=== PATIENT | male | born 1955 | race Caucasian/White ===

== ENCOUNTER 2016-07-18 19:28 | Inpatient (IN) | payer MEDICARE, OTHER ==
[2016-07-18] MEDS ORDERED: SODIUM CHLORIDE 0.9% 10 ML FLUSH FLUSH PRN (19:38)
[2016-07-18] MEDS ORDERED: METHYLPREDNISOLONE 125 MG/2 ML VIAL IV ONE (19:39)
[2016-07-18] MEDS ORDERED: Albuterol/Ipratropium Neb 3 ML NEB NEB ONE (19:39)
[2016-07-18 20:04] LABS: AUTOMATED EOSINOPHIL 1.5 % (0-5); AUTOMATED LYMPH 20.4 % (17-44); AUTOMATED MONOCYTE 14.7 % (3-10); AUTOMATED NEUTROPHIL 62.4 % (45-76); MPV 9.8 fL (7.4-10.4)
[2016-07-18 20:13] LABS: ALLEN'S TEST PASS; TCO2 28.7 MMOL/L (23-27)
[2016-07-18 20:14] LABS: ABG Draw Site Right Radial; ABG Draw Tech BKL
[2016-07-18 20:15] LABS: BLOOD UREA NITROGEN 13 MG/DL (9-20); CALCIUM 9.1 MG/DL (8.4-10.2); CALCULATED OSMOLALITY 266 MOs/Kg (270-290); CHLORIDE 96 mEq/L (98-107); GLUCOSE 104 MG/DL (70-99); PARTIAL THROMB. TIME 26.8 SEC (22-35); PT-INR 1.2; SODIUM LEVEL 138 mEq/L (137-146); TOTAL PROTEIN 8.7 G/DL (6.3-8.2)
--- NOTE | 2016-07-18 20:34 | EDPRACDOC ---
- General Information Chief Complaint: Dyspnea/Resp distress Stated Complaint: SHOB/COUGH/CARMELA/FEVER Time Seen by Provider: 07/18/16 19:38 Information Source: Patient, Family Mode Of Arrival: Car Home Medications: Home Medications Albuterol/Ipratropium Neb [Duoneb] 3 ml NEB Q4-6H PRN 02/23/14 Aspirin (OrangeEnteric Coated) [Ecotrin] 325 mg PO DAILY 02/23/14 Fenofibrate,Micronized [Fenofibrate] 200 mg PO DAILY 02/23/14 Lisinopril/Hydrochlorothiazide [Lisinopril-Hctz 20-12.5 mg Tab] 1 tab PO BID 01/29 Metoprolol Tartrate [Lopressor] 100 mg PO BID 02/23/14 Atorvastatin Calcium [Lipitor] 80 mg PO DAILY 08/23/14 Nebulizer [Erapid Nebulizer] 1 item INH DAILY 08/23/14 Budesonide [Pulmicort] 0.5 mg NEB TID 07/18/16 Allergies/Adverse Reactions: Allergies Allergy/AdvReac Type Severity Reaction Status Date / Time No Known Allergies Allergy Verified 11/03/15 23:34 - History of Present Illness Onset: TODAY HPI: PT PRESENTS TODAY WITH SHOB THAT BEGAN TODAY. PT STATES PRODUCTIVE COUGH, CAMERON. COPD AND STILL SMOKES 1/2 PACK/DAY. DENIES CP, ABD PAIN, N/V/D. USING INHALER W/OUT RELIEF. PT CURRENTLY TO TRIAGE WITH TACHYPNEA, 1-2 WORD SENTENCES AND SPO2 85%. Shortness of Breath: Severe Relevant History: Reports: COPD Cough: Reports: Productive, Green Rhinorrhea: Reports: None Ear Symptoms: Reports: None SOB Worsens with: Reports: Exertion, Coughing, CAMERON SOB Improves with: Reports: Rest Associated Signs and symptoms: Reports: Cough, Fever (SUBJECTIVE) ED Past Medical History - History Reviewed Yes Nurses notes reviewed and agree except as marked - Patient Medical History Neurological History: Denies: Cerebrovascular Accident, Seizures, Migraine Cardiac History: Reports: Hypertension, Hypercholesterolemia Respiratory History: Reports: Asthma, COPD (Uses nebs. No O2 at home.) GI/ History: Reports: Gastroesophageal Reflux Musculoskeletal History: Reports: Arthritis Psychological History: Denies: Depression, Anxiety, Bipolar Disorder, Substance Use Disorder Systemic History: Denies: Cancer, Diabetes, Hypothyroidism Surgical History: Reports: Hernia Surgery, Other (SPLENECTOMY.) - Family Medical History Reports: Hypertension (Brother), Stroke (Mother). Denies: Diabetes, Cancer, Cardiac Disorders - Social Medical History Smoking Status: Heavy tobacco smoker (5 or more cigarettes/day or daily pipe/ cigar) Social History: Denies: Substance Use Disorder EDM Review of Systems - Review of Systems ROS Negative Except as Marked: Yes All systems reviewed and were negative except as marked Constitutional: Fever Ears: No Symptoms Reported Throat: No Symptoms Reported Nose: No Symptoms Reported Respiratory: Cough, Shortness of Breath, Wheezing, Dyspnea Cardiovascular: No Symptoms Reported Gastrointestinal: No Symptoms Reported Neurological: No Symptoms Reported Musculoskeletal: No Symptoms Reported Integumentary: No Symptoms Reported - Physical Exam Constitutional: Alert, Distress Oriented to: Time, Person, Place Last recorded Vital Signs: Last Vital Signs Temp 98.1 F 07/18/16 19:44 Pulse 118 07/18/16 20:14 Resp 26 H 07/18/16 20:14 BP 110/72 07/18/16 20:14 Pulse Ox 92 07/18/16 20:14 Oxygen Pulse Oxygen Saturation 92 O2 Device Nasal Cannula Oxygen Flow Rate 3 Fraction of Inspired Oxygen ( FIO2) - HEENT Head: Normal Eye Exam: Normal Neck: Normal, Denies Pain, Midline - Respiratory/Cardiovascular Respiratory: Diminished, Tachypnea, Wheezes Cardiovascular: Tachycardia - GI Palpation: Normal Tenderness: Non tender - Musculoskeletal Back: Normal Extremities: Normal - Integumentary Skin: Normal Lymphatics: Normal - Neurologic Cerebellar: Normal Mood Description: Normal Thought: Coherent Perception: Normal ED SOB MDM - Results Result Diagrams: 07/18/16 19:50 07/18/16 19:50 Results: WBC 16.1 xk/uL (3.8-10.8) H 07/18/16 19:50 RBC 5.19 xM/uL (4.70-6.10) 07/18/16 19:50 Hgb 16.3 g/dL (14.0-18.0) 07/18/16 19:50 Hct 48.7 % (42-52) 07/18/16 19:50 MCV 94 fL (80-94) 07/18/16 19:50 MCH 31.4 pg (27-32) 07/18/16 19:50 MCHC 33.4 g/dl (33-36) 07/18/16 19:50 RDW 15.4 % (11.5-14.5) H 07/18/16 19:50 Plt Count 234 xk/uL (130-400) 07/18/16 19:50 MPV 9.8 fL (7.4-10.4) 07/18/16 19:50 Neut % (Auto) 62.4 % (45-76) 07/18/16 19:50 Lymph % (Auto) 20.4 % (17-44) 07/18/16 19:50 Gray % (Auto) 14.7 % (3-10) H 07/18/16 19:50 Eos % (Auto) 1.5 % (0-5) 07/18/16 19:50 Baso % (Auto) 1.0 % (0-2) 07/18/16 19:50 Absolute Neuts (auto) 9.98 xk/uL (1.7-8.2) H 07/18/16 19:50 Absolute Lymphs (auto) 3.22 xk/uL (0.65-4.75) 07/18/16 19:50 PT 12.0 SEC (9.2-11.2) H 07/18/16 19:50 INR 1.2 07/18/16 19:50 APTT 26.8 SEC (22-35) 07/18/16 19:50 Puncture Site Right radial 07/18/16 20:05 pH 7.480 pH UNITS (7.35-7.45) H 07/18/16 20:05 pCO2 37.0 mmHg (35-45) 07/18/16 20:05 pO2 62.0 mmHg (80-100) L 07/18/16 20:05 HCO3 27.6 MMOL/L (22-26) H 07/18/16 20:05 Total CO2 28.7 MMOL/L (23-27) H 07/18/16 20:05 Base Excess 4.0 (+/- 2) H 07/18/16 20:05 FiO2 % 3 lpm 07/18/16 20:05 Specimen Drawn By Bkl 07/18/16 20:05 Sodium 138 mEq/L (137-146) 07/18/16 19:50 Potassium 3.7 mEq/L (3.5-5.1) 07/18/16 19:50 Chloride 96 mEq/L (98-107) L 07/18/16 19:50 Carbon Dioxide 29 mMOL/L (22-33) 07/18/16 19:50 Anion Gap 17 mEq/L (8-16) H 07/18/16 19:50 BUN 13 MG/DL (9-20) 07/18/16 19:50 Creatinine 1.00 MG/DL (0.66-1.25) 07/18/16 19:50 Estimated GFR (MDRD) > 60 mL/min (>=60) 07/18/16 19:50 Glucose 104 MG/DL (70-99) H 07/18/16 19:50 Calculated Osmolality 266 MOs/Kg (270-290) L 07/18/16 19:50 Lactic Acid 1.1 mEq/L (0.7-2.1) 07/18/16 19:50 Calcium 9.1 MG/DL (8.4-10.2) 07/18/16 19:50 Total Bilirubin 2.4 MG/DL (0.2-1.3) H 07/18/16 19:50 AST 38 IU/L (17-59) 07/18/16 19:50 ALT 37 IU/L (21-72) 07/18/16 19:50 Alkaline Phosphatase 124 IU/L (38-126) 07/18/16 19:50 Ijs-C-Bjonvnlpuvg Pept 336 pg/mL (0-900) 07/18/16 19:50 Total Protein 8.7 G/DL (6.3-8.2) H 07/18/16 19:50 Albumin 4.1 G/DL (3.5-5.0) 07/18/16 19:50 Lab Results 07/18/16 07/18/16 07/18/16 20:05 19:50 19:50 WBC RBC Hgb Hct MCV MCH MCHC RDW Plt Count MPV Neut % (Auto) Lymph % (Auto) [place] % (Auto) Eos % (Auto) Baso % (Auto) Absolute Neuts (auto) Absolute Lymphs (auto) PT INR APTT Puncture Site Right radial pH 7.480 H pCO2 37.0 pO2 62.0 L HCO3 27.6 H Total CO2 28.7 H Base Excess 4.0 H FiO2 % 3 lpm Specimen Drawn By Bkl Sodium Potassium Chloride Carbon Dioxide Anion Gap BUN Creatinine Estimated GFR (MDRD) Glucose Calculated Osmolality Lactic Acid 1.1 Calcium Total Bilirubin AST ALT Alkaline Phosphatase Sdi-Y-Aanqoiubkeb Pept 336 Total Protein Albumin 07/18/16 07/18/16 07/18/16 19:50 19:50 19:50 WBC 16.1 H RBC 5.19 Hgb 16.3 Hct 48.7 MCV 94 MCH 31.4 MCHC 33.4 RDW 15.4 H Plt Count 234 MPV 9.8 Neut % (Auto) 62.4 Lymph % (Auto) 20.4 Gray % (Auto) 14.7 H Eos % (Auto) 1.5 Baso % (Auto) 1.0 Absolute Neuts (auto) 9.98 H Absolute Lymphs (auto) 3.22 PT 12.0 H INR 1.2 APTT 26.8 Puncture Site pH pCO2 pO2 HCO3 Total CO2 Base Excess FiO2 % Specimen Drawn By Sodium 138 Potassium 3.7 Chloride 96 L Carbon Dioxide 29 Anion Gap 17 H BUN 13 Creatinine 1.00 Estimated GFR (MDRD) > 60 Glucose 104 H Calculated Osmolality 266 L Lactic Acid Calcium 9.1 Total Bilirubin 2.4 H AST 38 ALT 37 Alkaline Phosphatase 124 Vzj-[id number]-Cflgdlfzcla Pept Total Protein 8.7 H Albumin 4.1 - EKG EKG #1 EKG Time: 19:42 -: Yes EKG interpreted by me Rate: bpm: 114 [place]: Normal Rhythm: ST Block: None Hypertrophy: None ST: Normal - Departure Disposition: Admit IP To This Hospital Condition: Stable Final Diagnosis: Pneumonia, Acute respiratory failure with hypoxia, COPD with exacerbation Referrals: Reji Dinero MD [Primary Care Provider] - One Week Prescriptions: No Action Metoprolol Tartrate [Lopressor] 100 mg PO BID Lisinopril/Hydrochlorothiazide [Lisinopril-Hctz 20-12.5 mg Tab] 1 tab PO BID Fenofibrate,Micronized [Fenofibrate] 200 mg PO DAILY Aspirin (OrangeEnteric Coated) [Ecotrin] 325 mg PO DAILY Albuterol/Ipratropium Neb [Duoneb] 3 ml NEB Q4-6H PRN PRN Reason: Shortness Of Breath Nebulizer [Erapid Nebulizer] 1 item INH DAILY Atorvastatin Calcium [Lipitor] 80 mg PO DAILY Budesonide [Pulmicort] 0.5 mg NEB TID Decision to Admit Time: 22:19 Decision to admit date: 07/18/16 Decision to admit: from ED
--- NOTE | 2016-07-18 21:03 | DIRPT ---
CLINICAL DATA: Shortness of breath beginning today. Productive cough. History of COPD. Denies chest pain and abdominal pain. EXAM: PORTABLE CHEST 1 VIEW COMPARISON: 11/03/2015 FINDINGS: There are irregular interstitial opacities along the bronchovascular structures to both lung bases. There is a more subtle area of similar opacity in the right mid lung. No evidence of pulmonary edema. No pleural effusion or pneumothorax. Heart, mediastinum and nile are unremarkable. IMPRESSION: 1. Irregular interstitial opacities noted in both lung bases along the bronchovascular structures. Findings support bronchitis or possibly bronchopneumonia. No evidence of pulmonary edema. Electronically Signed By: Jaren Arauz M.D. On: 07/18/2016 21:01
[2016-07-18] MEDS ORDERED: NS 1,000 ML IV ONE ×2 (22:18→23:33)
[2016-07-18] MEDS ORDERED: CEFTRIAXONE 1 GM in D5W 100 ML IV ONE (22:19)
[2016-07-18] MEDS ORDERED: AZITHROMYCIN 500 MG in D5W 250 ML IV ONE (22:19)
--- NOTE | 2016-07-18 22:35 | HISTPHYS ---
- Chief Complaint shortness of breath - History of Present Illness PRIMARY CARE PROVIDER: Dr. Dinero HPI: The patient is a 61 yo man with COPD who does not wear oxygen at home who presents with acute shortness of breath. It started this morning and has been getting worse, so he presented to the emergency department. He has had fever and chills today. Onset: this morning. Duration: Now constant. Character: Can't get a good breath. Even short of breath with sitting. Alleviated by: Nothing. Exacerbated by: Walking. Associated Symptoms: Fever, chills, and diaphoresis. Cough productive of white sputum. Wheezing. No chest pain or palpitations. Treatments: none at home except usual medications. - Medical History Cardiac History: Reports: Hypertension, Hypercholesterolemia (and history of pericarditis) Respiratory History: Reports: COPD (Uses nebs. No O2 at home.) GI/ History: Reports: Gastroesophageal Reflux Musculoskeletal History: Reports: Arthritis, Rheumatoid Arthritis (Rheumatoid arthritis, had been on methotrexate in past) OTHER HISTORY ECHOCARDIOGRAM 12/24/2007: EF 75% Impaired relaxation with possible diastolic dysfunction. Medium-sized pericardial effusion without signs of hemodynamic compromise. 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.) - Medictions/Allergies Allergies No Known Allergies Allergy (Verified 11/03/15 23:34) Current Medication List: Reviewed Home Medications Albuterol/Ipratropium Neb [Duoneb] 3 ml NEB Q4-6H PRN 02/23/14 Aspirin (OrangeEnteric Coated) [Ecotrin] 325 mg PO DAILY 02/23/14 Fenofibrate,Micronized [Fenofibrate] 200 mg PO DAILY 02/23/14 Lisinopril/Hydrochlorothiazide [Lisinopril-Hctz 20-12.5 mg Tab] 1 tab PO BID 01/29 Metoprolol Tartrate [Lopressor] 100 mg PO BID 02/23/14 Atorvastatin Calcium [Lipitor] 80 mg PO DAILY 08/23/14 Nebulizer [Erapid Nebulizer] 1 item INH DAILY 08/23/14 Budesonide [Pulmicort] 0.5 mg NEB TID 07/18/16 - Family History Reports: Hypertension (Brother), Stroke (Mother), Other (Mother: rheumatoid arthritis. No other family history known.) - Social History Smoking Status: Heavy tobacco smoker (5 or more cigarettes/day or daily pipe/ cigar) (Smokes 1 ppd. Started 13 yo. Approx 48 pack-year history.) Social History: Denies: Alcohol Use, Substance Use Disorder - Review of Systems GENERAL: Fever, chills, and diaphoresis. Positive for fatigue/malaise. HEENT: No ear pain or discharge. No nasal discharge or bleeding. No throat pain or swelling. No eye pain or eye redness. RESPIRATORY: Cough, wheezing, and shortness of breath. CARDIOVASCULAR: No chest pain or palpitations. GI: Chronic diarrhea. No abdominal pain, nausea, vomiting, constipation, or bloody stool. NEUROLOGICAL: No headache or focal weakness. INTEGUMENT: no rashes, itching, or lesions. LYMPHATIC SYSTEM: no lymph node swelling or pain. MUSCULOSKELETAL: no pain or joint swelling. GENITOURINARY: No dysuria or hematuria. ENDOCRINE: No polyuria or polydipsia. HEME: No chronic anemia, bleeding, or easy bruising. - Physical Exam Vital Signs: Initial Vitals Temperature 98.1 F 07/18/16 19:44 Pulse Rate 117 07/18/16 19:44 Respiratory Rate 28 H 07/18/16 19:44 Blood Pressure 118/73 07/18/16 19:44 Pulse Oxygen Saturation 89 L 07/18/16 19:44 Vital Signs - 24 hr 07/18/16 07/18/16 07/18/16 19:44 20:14 21:09 Temperature 98.1 F Pulse Rate 117 118 117 Respiratory 28 H 26 H 20 Rate Blood Pressure 118/73 110/72 116/75 Pulse Oxygen 89 L 92 87 L Saturation Weight: 90.7 kg Height: 5 feet 2 inches BMI: 36.6 - Other Exam Other Exam Findings: GENERAL: Ill-appearing, well nourished, in acute distress. Sitting on edge of bed. HEENT: Normocephalic, atraumatic; pupils equal and round. Nares patent, without discharge or bleeding. No oropharyngeal lesions or erythema. Mucous membranes are dry. NECK: is supple, no masses, trachea midline. RESPIRATORY: Exam performed while patient wearing 3L NC O2. Clear to auscultation bilaterally. Chest wall movements are symmetric. Tachypnea to 28. Use of accessory muscles to breathe. Sitting straight up on edge of bed. Pursed lip breathing. Prolonged expiration. Bilateral wheezing. Rhonchi on right. No rales. CARDIOVASCULAR: Normal S1, S2. No murmurs, rubs, or gallops. PMI non-displaced. Carotids: no carotid bruits. Mild tachycardia. No JVD. DP pulses 2+ bilaterally. GI: soft, nontender, non-distended, normal active bowel sounds. No hepatosplenomegaly. INTEGUMENT: Clean, dry, and intact. No rashes. No lesions. MUSCULOSKELETAL: Moving all extremities. No cyanosis. No clubbing. Edema: none bilaterally. NEUROLOGICAL: Cranial nerves 2-12 grossly intact. Motor 4/5 throughout. Reflexes : 2+ bilaterally. Babinski: toes downgoing bilaterally. Intact Finger to nose. Sensory grossly intact to light touch. Intact rapid alternating movements bilaterally. No pronator drift. PSYCHIATRIC: Fully oriented. Normal and appropriate affect. LYMPHATIC: No cervical lymphadenopathy. No supraclavicular lymphadenopathy. - Lab Results Laboratory Results - last 24 hr 07/18/16 07/18/16 07/18/16 19:50 19:50 19:50 WBC 16.1 H RBC 5.19 Hgb 16.3 Hct 48.7 MCV 94 MCH 31.4 MCHC 33.4 RDW 15.4 H Plt Count 234 MPV 9.8 Neut % (Auto) 62.4 Lymph % (Auto) 20.4 [place] % (Auto) 14.7 H Eos % (Auto) 1.5 Baso % (Auto) 1.0 Absolute Neuts (auto) 9.98 H Absolute Lymphs (auto) 3.22 PT 12.0 H INR 1.2 APTT 26.8 Puncture Site pH pCO2 pO2 HCO3 Total CO2 Base Excess FiO2 % Specimen Drawn By Sodium 138 Potassium 3.7 Chloride 96 L Carbon Dioxide 29 Anion Gap 17 H BUN 13 Creatinine 1.00 Estimated GFR (MDRD) > 60 Glucose 104 H Calculated Osmolality 266 L Lactic Acid Calcium 9.1 Total Bilirubin 2.4 H AST 38 ALT 37 Alkaline Phosphatase 124 Troponin I < 0.01 Yrv-Y-Qeonnanjtip Pept Total Protein 8.7 H Albumin 4.1 07/18/16 07/18/16 07/18/16 19:50 19:50 20:05 WBC RBC Hgb Hct MCV MCH MCHC RDW Plt Count MPV Neut % (Auto) Lymph % (Auto) [place] % (Auto) Eos % (Auto) Baso % (Auto) Absolute Neuts (auto) Absolute Lymphs (auto) PT INR APTT Puncture Site Right radial pH 7.480 H pCO2 37.0 pO2 62.0 L HCO3 27.6 H Total CO2 28.7 H Base Excess 4.0 H FiO2 % 3 lpm Specimen Drawn By Bkl Sodium Potassium Chloride Carbon Dioxide Anion Gap BUN Creatinine Estimated GFR (MDRD) Glucose Calculated Osmolality Lactic Acid 1.1 Calcium Total Bilirubin AST ALT Alkaline Phosphatase Troponin I Shg-U-Mslnbcmefnt Pept 336 Total Protein Albumin - Diagnostic Findings EK bpm. Sinus tachycardia. Reviewed EKG personally. Chest x-ray, viewed personally: CLINICAL DATA: Shortness of breath beginning today. Productive cough. History of COPD. Denies chest pain and abdominal pain. EXAM: PORTABLE CHEST 1 VIEW COMPARISON: 11/03/2015 FINDINGS: There are irregular interstitial opacities along the bronchovascular structures to both lung bases. There is a more subtle area of similar opacity in the right mid lung. No evidence of pulmonary edema. No pleural effusion or pneumothorax. Heart, mediastinum and nile are unremarkable. IMPRESSION: 1. Irregular interstitial opacities noted in both lung bases along the bronchovascular structures. Findings support bronchitis or possibly bronchopneumonia. No evidence of pulmonary edema. - Assessment (1) Acute respiratory failure with hypoxia J96.01 - ACUTE RESPIRATORY FAILURE WITH HYPOXIA Acute Present on Admission: Yes Patient has dyspnea and is not improving. Patient's PO2 is low even while on 3L NC. Patient's peripheral O2 sat worsened to 87%. Plan: Treatment with O2 by NC has not been effective; he is still tachypneic and sitting straight up in bed trying to breathe. Place patient on oxygen by Venti Mask 40% and increase as needed. Monitor oxygen saturation levels and keep O2 sats greater than 92%. Will check a D-dimer. If positive will order CTA Chest. (2) Sepsis A41.9 - SEPSIS, UNSPECIFIED ORGANISM Acute Present on Admission: Yes Present on admission. Criteria: Pulse 114. Respiratory rate 28. Elevated WBCs. Source: Likely due to bronchopneumonia. Plan: Sepsis order set. IV antibiotics. IV fluids to provide volume. Monitor for signs of volume depletion, monitor blood pressure carefully. If still hypotensive with IV fluids consider pressors. Close monitoring. Telemetry. IVF: initial IVF 30 mL/kg x 1, then 250 mL/hr x 1 L, then maintenance IVF. (3) COPD with exacerbation J44.1 - CHRONIC OBSTRUCTIVE PULMONARY DISEASE W (ACUTE) EXACERBATION Acute Present on Admission: Yes COPD exacerbation, severe. Plan: Nebs of Duoneb q 6 hours scheduled and albuterol q 2 hours prn. Sputum culture ordered. IV ceftriaxone and IV azithromycin. IV methylprednisolone. Continuous oxygen support. Keep sats below 95% due to COPD. (4) Bronchopneumonia J18.0 - BRONCHOPNEUMONIA, UNSPECIFIED ORGANISM Acute Present on Admission: Yes Rhonchi on exam. Patient has fever and chills at home. Plan: Cultures ordered. Give IV ceftriaxone and IV azithromycin. Continuous oxygen support. (5) Tobacco abuse Z72.0 - TOBACCO USE Acute Present on Admission: Yes Counseled to quit. 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 - Plan In summary, this patient is acutely and critically ill. The patient requires treatment of vital organ failure and measures to prevent further life- threatening deterioration of condition. I have spent 60 min in the critical care of this patient. Case Care Discussed with: Patient, Nursing Staff Total Time: 60 min Critical Care: Yes Code: 291 - Focused CV Perfusion Exam Date exam occurred: 07/18/16 Time of Exam: 23:00 Vital Signs: Last Vital Signs See Vitals section Respiratory: Respiratory distress, Accessory muscle use, Rhonchi, Wheezing Cardiovascular/Chest: Normal (Normal S1 and S2), Tachycardia Capillary Refill: Immediate Peripheral pulses: Full: Radial (R), Radial (L), Dorsalis pedis (R), Dorsalis pedis (L), Posterior tibialis (R), Posterior tibialis (L) Skin Color: negative: Erythema, Cyanotic Skin Turgor: <3 Seconds
[2016-07-18] MEDS ORDERED: PROMETHAZINE 25 MG/ML VIAL IV PRN (23:33)
[2016-07-18] MEDS ORDERED: TEMAZEPAM 15 MG CAP PO PRN (23:33)
[2016-07-18] MEDS ORDERED: GUAIFEN 100 MG-DEXTROMETH 10 MG PER 5 ML PO PRN (23:33)
[2016-07-18] MEDS ORDERED: SIMETHICONE 80 MG TAB PO PRN (23:33)
[2016-07-18] MEDS ORDERED: BISACODYL 5 MG TAB PO PRN (23:33)
[2016-07-18] MEDS ORDERED: BENZONATATE 100 MG PERLES PO PRN (23:33)
[2016-07-18] MEDS ORDERED: SENNA CONCENTRATE TAB PO PRN (23:33)
[2016-07-18] MEDS ORDERED: ONDANSETRON HCL 4 MG/2 ML VIAL IV PRN (23:33)
[2016-07-18] MEDS ORDERED: Pharmacy Order Set Alert SCH (23:45)
[2016-07-19] MEDS ORDERED: ALBUTEROL 0.083% 3 ML NEB NEB PRN (00:04)
[2016-07-19] MEDS ORDERED: POTASSIUM CHLORIDE 20 MEQ TAB PO ONE (00:08)
[2016-07-19] MEDS: ENOXAPARIN 40 MG/0.4 ML PFS SQ SCH ×2 (00:30→20:24)
[2016-07-19] MEDS: METOPROLOL TARTRATE 100 MG TAB PO SCH ×3 (00:43→20:22)
[2016-07-19] MEDS ORDERED: Vaccine Screening Complete SCH (01:00)
[2016-07-19] MEDS ORDERED: NS 1,000 ML IV ONE (01:35)
[2016-07-19] MEDS ORDERED: Pharmacy Review for Metformin - IV Contrast Given SCH (02:00)
[2016-07-19 02:11] LABS: MPV 9.6 fL (7.4-10.4)
[2016-07-19 02:15] LABS: BLOOD UREA NITROGEN 13 MG/DL (9-20); CALC CORRECTED 9.2 MG/DL (8.4-10.2); CALCIUM 8.7 MG/DL (8.4-10.2); CALCULATED OSMOLALITY 264 MOs/Kg (270-290); CHLORIDE 96 mEq/L (98-107); GLUCOSE 199 mg/dL (70-99); SODIUM LEVEL 134 mEq/L (137-146); TOTAL PROTEIN 7.5 G/DL (6.3-8.2)
[2016-07-19] MEDS: Albuterol/Ipratropium Neb 3 ML NEB NEB SCH ×5 (02:27→19:34)
[2016-07-19] MEDS ORDERED: AZITHROMYCIN 500 MG in D5W 250 ML IV SCH (02:35)
[2016-07-19 03:05] LABS: SEG NEUTROPHIL 88 % (45-76)
--- NOTE | 2016-07-19 03:22 | DIRPT ---
CLINICAL DATA: Elevated D-dimer. Respiratory failure and chills. Sepsis. EXAM: CT ANGIOGRAPHY CHEST WITH CONTRAST TECHNIQUE: Multidetector CT imaging of the chest was performed using the standard protocol during bolus administration of intravenous contrast. Multiplanar CT image reconstructions and MIPs were obtained to evaluate the vascular anatomy. CONTRAST: 80 cc Isovue 370 intravenous COMPARISON: 08/23/2014 FINDINGS: THORACIC INLET/BODY WALL: No acute abnormality. MEDIASTINUM: Normal heart size. No aortic aneurysm or dissection. Extensive atherosclerotic calcification, including the coronary arteries. No pericardial effusion. CTA of the pulmonary arteries is limited by respiratory motion, especially at the bases. Motion primarily affects subsegmental vessels. No evidence of pulmonary embolism. No adenopathy LUNG WINDOWS: Hyperinflation with severe airway thickening, especially in the lower lobes where there is multi segment airway opacification. Transient collapse of airways consistent with bronchomalacia. There is no edema, consolidation, effusion, or pneumothorax. UPPER ABDOMEN: Splenectomy. OSSEOUS: No acute fracture. No suspicious lytic or blastic lesions. Review of the MIP images confirms the above findings. IMPRESSION: 1. No evidence of pulmonary embolism. Sensitivity is limited by extensive respiratory motion, primarily affecting subsegmental vessels. 2. Severe bronchitis with multi segment airway occlusion. Tracheobronchomalacia. Electronically Signed By: Gaston Mancuso M.D. On: 07/19/2016 03:20
[2016-07-19] MEDS: METHYLPREDNISOLONE 125 MG/2 ML VIAL IV SCH ×3 (03:42→20:22)
[2016-07-19] MEDS: NS 1,000 ML IV SCH ×4 (06:20→23:12)
[2016-07-19] MEDS: HYDROCHLOROTHIAZIDE 12.5 MG CAP PO SCH ×2 (07:30→20:22)
[2016-07-19] MEDS: Aspirin (Orange Enteric Coated) 325 mg tab PO SCH (07:30)
[2016-07-19] MEDS: FENOFIBRATE 145 MG TAB PO SCH (07:30)
[2016-07-19] MEDS: LISINOPRIL 20 MG TAB PO SCH ×2 (07:31→20:22)
[2016-07-19] MEDS: ATORVASTATIN 80 MG TAB PO SCH (07:31)
[2016-07-19] MEDS: BUDESONIDE 0.5 MG NEB NEB SCH ×3 (08:40→19:40)
[2016-07-19] MEDS ORDERED: LISINOPRIL PO SCH (09:00)
[2016-07-19] MEDS ORDERED: [UNRECOGNIZED DRUG - OTHER] PO SCH (09:00)
[2016-07-19] MEDS ORDERED: HYDROCHLOROTHIAZIDE PO SCH (09:00)
[2016-07-19] MEDS ORDERED: Non-Formulary Medication ITEM (Fenofibrate,Micronized [Fenofibrate] 200 MG) PO SCH (09:00)
--- NOTE | 2016-07-19 09:59 | GENMEDPROG ---
Chief Complaint: wearing venti-mask and sob @ 26/min Notes Reviewed: Yes: Events from last night noted and discussed with Clinical Staff Current Medication List: Reviewed Currently: Reports: Cough, Wheezing, CAMERON, SOB, Sputum DVT Prophylaxis: Yes - Physical Examination Vital Signs and I&O: Last Vital Signs Temp 97.6 F 07/19/16 07:36 Pulse 91 07/19/16 09:06 Resp 26 H 07/19/16 07:36 BP 122/80 07/19/16 07:36 Pulse Ox 98 07/19/16 08:40 Oxygen Pulse Oxygen Saturation 98 O2 Device Venturi Mask Oxygen Flow Rate 3 Fraction of Inspired Oxygen ( 40 FIO2) Intake & Output 07/16/16 07/17/16 07/18/16 07/19/16 23:59 23:59 23:59 23:59 Intake Total 305 1947 Output Total 2125 Balance 305 -178 Patient's weight 84.187 kg General: Oriented x3, Moderate distress, Obese, Weakness, Fatigue HEENT: Normal (Normocephalic, atraumatic;EOMI.Sclera white, Nares patent, without discharge or bleeding. No oropharyngeal lesions or erythema. Mucous membranes are dry.) Neck: Non-tender, Normal Trachea alignment, Normal inspection (No cervical lymphadenopathy. No supraclavicular lymphadenopathy.), No Masses palpable, Limited range of motion, Supple Lymphatics: Normal Respiratory: Diminished, Retractions, Tachypnea, Wheezes, Excursion (decreased) . negative: Rales, Rhonchi Cardiovascular: Regular rate and rhythm (No bradycardia or tachycardia), Normal S1, No Gallops,Rubs/Murmurs, Normal S2, Good Pedal Pulses (DP pulses 2+ bilaterally) GI: Normal bowel sounds (normal active sounds), Soft (non-distended), Non tender , No hepatospenomegaly, No masses, Obese Extremities/Musculoskeletal: Normal pulses (DP pulses 2+ bilaterally), Other ( RA ulnar deviation) Skin: Warm,Dry and Intact, No rashes, No significant lesion Neurological: Strength at 5/5 X4 ext (Motor 5/5 throughout.), Normal tone, Cranial nerves 3-12 NL ( 2-12 grossly intact.) Psych/Mental Status: Appropriate, Normal Affect Lab/DI/Studies Reviewed: 07/19/16 01:45 07/19/16 01:45 Laboratory Results - last 24 hr 07/18/16 07/18/16 07/18/16 19:50 19:50 19:50 WBC 16.1 H RBC 5.19 Hgb 16.3 Hct 48.7 MCV 94 MCH 31.4 MCHC 33.4 RDW 15.4 H Plt Count 234 MPV 9.8 Neut % (Auto) 62.4 Lymph % (Auto) 20.4 Duval % (Auto) 14.7 H Eos % (Auto) 1.5 Baso % (Auto) 1.0 Absolute Neuts (auto) 9.98 H Absolute Lymphs (auto) 3.22 Seg Neuts % (Manual) Band Neutrophils % Lymphocytes % (Manual) Monocytes % (Manual) Absolute Neutrophils Absolute Lymphocytes Platelet Estimate RBC Morphology PT 12.0 H INR 1.2 APTT 26.8 D-Dimer Quant (PE/DVT) Puncture Site pH pCO2 pO2 HCO3 Total CO2 Base Excess FiO2 % Specimen Drawn By Sodium 138 Potassium 3.7 Chloride 96 L Carbon Dioxide 29 Anion Gap 17 H BUN 13 Creatinine 1.00 Estimated GFR (MDRD) > 60 Glucose 104 H Calculated Osmolality 266 L Lactic Acid Calcium 9.1 Corrected Calcium Total Bilirubin 2.4 H AST 38 ALT 37 Alkaline Phosphatase 124 Troponin I < 0.01 Vgf-Y-Zopnwwjqxmf Pept Total Protein 8.7 H Albumin 4.1 07/18/16 07/18/16 07/18/16 19:50 19:50 20:05 WBC RBC Hgb Hct MCV MCH MCHC RDW Plt Count MPV Neut % (Auto) Lymph % (Auto) Duval % (Auto) Eos % (Auto) Baso % (Auto) Absolute Neuts (auto) Absolute Lymphs (auto) Seg Neuts % (Manual) Band Neutrophils % Lymphocytes % (Manual) Monocytes % (Manual) Absolute Neutrophils Absolute Lymphocytes Platelet Estimate RBC Morphology PT INR APTT D-Dimer Quant (PE/DVT) Puncture Site Right radial pH 7.480 H pCO2 37.0 pO2 62.0 L HCO3 27.6 H Total CO2 28.7 H Base Excess 4.0 H FiO2 % 3 lpm Specimen Drawn By Bkl Sodium Potassium Chloride Carbon Dioxide Anion Gap BUN Creatinine Estimated GFR (MDRD) Glucose Calculated Osmolality Lactic Acid 1.1 Calcium Corrected Calcium Total Bilirubin AST ALT Alkaline Phosphatase Troponin I Ilf-L-Ndlhxkiswka Pept 336 Total Protein Albumin 07/18/16 07/18/16 07/19/16 23:35 23:35 01:45 WBC RBC Hgb Hct MCV MCH MCHC RDW Plt Count MPV Neut % (Auto) Lymph % (Auto) Duval % (Auto) Eos % (Auto) Baso % (Auto) Absolute Neuts (auto) Absolute Lymphs (auto) Seg Neuts % (Manual) Band Neutrophils % Lymphocytes % (Manual) Monocytes % (Manual) Absolute Neutrophils Absolute Lymphocytes Platelet Estimate RBC Morphology PT INR APTT D-Dimer Quant (PE/DVT) 726 H Puncture Site pH pCO2 pO2 HCO3 Total CO2 Base Excess FiO2 % Specimen Drawn By Sodium Potassium Chloride Carbon Dioxide Anion Gap BUN Creatinine Estimated GFR (MDRD) Glucose Calculated Osmolality Lactic Acid Calcium Corrected Calcium Total Bilirubin AST ALT Alkaline Phosphatase Troponin I < 0.01 < 0.01 Swy-Q-Zxzcenplxqa Pept Total Protein Albumin 07/19/16 07/19/16 01:45 01:45 WBC 11.1 H RBC 4.65 L Hgb 14.6 D Hct 44.4 MCV 96 H MCH 31.4 MCHC 32.9 L RDW 15.7 H Plt Count 211 MPV 9.6 Neut % (Auto) Cancelled Lymph % (Auto) Cancelled Duval % (Auto) Cancelled Eos % (Auto) Cancelled Baso % (Auto) Cancelled Absolute Neuts (auto) Cancelled Absolute Lymphs (auto) Cancelled Seg Neuts % (Manual) 88 H Band Neutrophils % 0 Lymphocytes % (Manual) 6 L Monocytes % (Manual) 6 Absolute Neutrophils 9.77 H Absolute Lymphocytes 0.67 Platelet Estimate Norm RBC Morphology Norm PT INR APTT D-Dimer Quant (PE/DVT) Puncture Site pH pCO2 pO2 HCO3 Total CO2 Base Excess FiO2 % Specimen Drawn By Sodium 134 L Potassium 3.8 Chloride 96 L Carbon Dioxide 27 Anion Gap 15 BUN 13 Creatinine 0.90 Estimated GFR (MDRD) > 60 Glucose 199 H Calculated Osmolality 264 L Lactic Acid Calcium 8.7 Corrected Calcium 9.2 Total Bilirubin 1.7 H AST 26 D ALT 33 Alkaline Phosphatase 97 Troponin I Fnz-M-Wabdbucgmhh Pept Total Protein 7.5 Albumin 3.5 - Assessment (1) Acute respiratory failure with hypoxia Acute J96.01 - ACUTE RESPIRATORY FAILURE WITH HYPOXIA Comment/Plan: Patient has dyspnea and is not improving. Patient's PO2 is low even while on 3L NC. Patient's peripheral O2 sat worsened to 87%. Plan: Treatment with O2 by NC has not been effective; he is still tachypneic and sitting straight up in bed trying to breathe. Place patient on oxygen by Venti Mask 40% and increase as needed. Monitor oxygen saturation levels and keep O2 sats greater than 92%. Will check a D-dimer. If positive will order CTA Chest. (2) Bronchopneumonia Acute J18.0 - BRONCHOPNEUMONIA, UNSPECIFIED ORGANISM Comment/Plan: Rhonchi on exam. Patient has fever and chills at home. Plan: Cultures ordered. Give IV ceftriaxone and IV azithromycin. Continuous oxygen support. (3) COPD with exacerbation Acute J44.1 - CHRONIC OBSTRUCTIVE PULMONARY DISEASE W (ACUTE) EXACERBATION Comment/Plan: COPD exacerbation, severe. Plan: Nebs of Duoneb q 6 hours scheduled and albuterol q 2 hours prn. Sputum culture ordered. IV ceftriaxone and IV azithromycin. IV methylprednisolone. Continuous oxygen support. Keep sats below 95% due to COPD. (4) Tobacco abuse Chronic Z72.0 - TOBACCO USE Comment/Plan: Counseled to quit. (5) DMII (diabetes mellitus, type 2) Chronic E11.9 - TYPE 2 DIABETES MELLITUS WITHOUT COMPLICATIONS Qualifiers: Diabetes mellitus complication status: with kidney complications Diabetes mellitus complication detail: with microalbuminuria Comment/Plan: FSBS and SSI. Continue home meds. (6) Hypothyroidism Chronic E03.9 - HYPOTHYROIDISM, UNSPECIFIED Qualifiers: Hypothyroidism type: acquired Qualified Code(s): E03.9 - Hypothyroidism, unspecified Comment/Plan: Synthroid. Additional Notes: Due to the presence of and / or the risk of deterioration, my attendance to this patient required critical care time, including assessment/reassessment, documentation, ordering and interpreting ancillary studies, discussion with staff and consultants,patient and family, and excludes time spent on separately billable procedures. This individual is critically ill and in danger of dying. Case Care Discussed with: Patient, Nursing Staff, Resource Management Education/Counseling Given To: Patient Education/Counseling Given Regarding: Diagnosis, Treatment Total Time: cc time 38 min Critical Care: Yes Code: 291
[2016-07-19] MEDS: TUSSIONEX 5 ML ORAL SYRINGE PO SCH ×2 (10:26→21:36)
[2016-07-19] MEDS: PROBIOTIC BLEND TAB PO SCH ×2 (11:29→17:09)
[2016-07-19] MEDS: BENZONATATE 100 MG PERLES PO SCH ×2 (14:33→20:24)
[2016-07-19] MEDS: CEFTRIAXONE 1 GM in D5W 100 ML IV SCH (22:00)
[2016-07-19] MEDS: AZITHROMYCIN 500 MG in D5W 250 ML IV SCH (23:12)
[2016-07-20] MEDS: Albuterol/Ipratropium Neb 3 ML NEB NEB SCH ×4 (01:23→20:52)
[2016-07-20] MEDS: METHYLPREDNISOLONE 125 MG/2 ML VIAL IV SCH ×3 (04:26→20:00)
[2016-07-20] MEDS: BENZONATATE 100 MG PERLES PO SCH ×3 (04:26→20:03)
[2016-07-20] MEDS: METOPROLOL TARTRATE 100 MG TAB PO SCH ×2 (07:06→20:02)
[2016-07-20] MEDS: LISINOPRIL 20 MG TAB PO SCH ×2 (07:47→20:04)
[2016-07-20] MEDS: HYDROCHLOROTHIAZIDE 12.5 MG CAP PO SCH ×2 (07:47→20:03)
[2016-07-20] MEDS: ATORVASTATIN 80 MG TAB PO SCH (07:48)
[2016-07-20] MEDS: FENOFIBRATE 145 MG TAB PO SCH (07:48)
[2016-07-20] MEDS: PROBIOTIC BLEND TAB PO SCH ×2 (07:48→17:23)
[2016-07-20] MEDS: Aspirin (Orange Enteric Coated) 325 mg tab PO SCH (07:48)
[2016-07-20] MEDS: BUDESONIDE 0.5 MG NEB NEB SCH ×3 (08:39→20:54)
[2016-07-20] MEDS: TUSSIONEX 5 ML ORAL SYRINGE PO SCH ×2 (09:07→20:10)
--- NOTE | 2016-07-20 10:25 | GENMEDPROG ---
Chief Complaint: sob sl better coughing up creamy phlegm Notes Reviewed: Yes: Events from last night noted and discussed with Clinical Staff Current Medication List: Reviewed Currently: Reports: Cough, Wheezing, CAMERON, SOB, Sputum DVT Prophylaxis: Yes - Physical Examination Vital Signs and I&O: Last Vital Signs Temp 98.0 F 07/20/16 08:00 Pulse 57 L 07/20/16 09:07 Resp 20 07/20/16 08:00 BP 111/66 07/20/16 08:00 Pulse Ox 95 07/20/16 08:53 Oxygen Pulse Oxygen Saturation 95 O2 Device Nasal Cannula Oxygen Flow Rate 3 Fraction of Inspired Oxygen ( 35 FIO2) Intake & Output 07/17/16 07/18/16 07/19/16 07/20/16 23:59 23:59 23:59 23:59 Intake Total 305 4904 1689 Output Total 3375 1050 Balance 305 1529 639 Patient's weight 84.187 kg 85.366 kg General: Oriented x3, Moderate distress, Obese, Weakness, Fatigue HEENT: Normal (Normocephalic, atraumatic;EOMI.Sclera white, Nares patent, without discharge or bleeding. No oropharyngeal lesions or erythema. Mucous membranes are dry.) Neck: Non-tender, Normal Trachea alignment, Normal inspection (No cervical lymphadenopathy. No supraclavicular lymphadenopathy.), No Masses palpable, Limited range of motion, Supple Lymphatics: Normal Respiratory: Diminished, Rhonchi, Wheezes, Excursion (decreased). negative: Rales Cardiovascular: Regular rate and rhythm (No bradycardia or tachycardia), Normal S1, No Gallops,Rubs/Murmurs, Normal S2, Good Pedal Pulses (DP pulses 2+ bilaterally) GI: Normal bowel sounds (normal active sounds), Soft (non-distended), Non tender , No hepatospenomegaly, No masses, Obese Extremities/Musculoskeletal: Normal pulses (DP pulses 2+ bilaterally), Other ( RA ulnar deviation) Skin: Warm,Dry and Intact, No rashes, No significant lesion Neurological: Strength at 5/5 X4 ext (Motor 5/5 throughout.), Normal tone, Cranial nerves 3-12 NL ( 2-12 grossly intact.) Psych/Mental Status: Appropriate, Normal Affect Lab/DI/Studies Reviewed: 07/19/16 01:45 07/19/16 01:45 - Assessment (1) Acute respiratory failure with hypoxia Acute J96.01 - ACUTE RESPIRATORY FAILURE WITH HYPOXIA Comment/Plan: O2 sat has improve such that now requiring 3 L by nasal cannula. (2) Bronchopneumonia Acute J18.0 - BRONCHOPNEUMONIA, UNSPECIFIED ORGANISM Comment/Plan: Tolerating the IV ceftriaxone and IV azithromycin with probiotic. (3) COPD with exacerbation Acute J44.1 - CHRONIC OBSTRUCTIVE PULMONARY DISEASE W (ACUTE) EXACERBATION Comment/Plan: COPD exacerbation, severe. Nebs of Duoneb q 6 hours scheduled and albuterol q 2 hours prn. IV ceftriaxone and IV azithromycin. IV methylprednisolone. Continuous oxygen support. Keep sats below 95% due to COPD. (4) Tobacco abuse Chronic Z72.0 - TOBACCO USE Comment/Plan: Counseled to quit. Spent 10 min discussing cessation and agreed to take the Chantix to help him quit. (5) Hypothyroidism Chronic E03.9 - HYPOTHYROIDISM, UNSPECIFIED Qualifiers: Hypothyroidism type: acquired Qualified Code(s): E03.9 - Hypothyroidism, unspecified Comment/Plan: Synthroid. (6) DMII (diabetes mellitus, type 2) Chronic E11.9 - TYPE 2 DIABETES MELLITUS WITHOUT COMPLICATIONS Qualifiers: Diabetes mellitus complication status: with kidney complications Diabetes mellitus complication detail: with microalbuminuria Diabetes mellitus [facility] insulin use: without [facility] use Qualified Code(s): E11.29 - Type 2 diabetes mellitus with other diabetic kidney complication; R80.9 - Proteinuria, unspecified Comment/Plan: FSBS and SSI. Continue home meds. Case Care Discussed with: Patient, Nursing Staff Education/Counseling Given To: Patient Education/Counseling Given Regarding: Diagnosis, Treatment Total Time: 36 min plus 10 min discussion cessation smoking Critical Care: No Code: 39233 (12+) (407)
[2016-07-20] MEDS: NS 1,000 ML IV SCH (16:59)
[2016-07-20] MEDS: ENOXAPARIN 40 MG/0.4 ML PFS SQ SCH (17:23)
[2016-07-20] MEDS: CEFTRIAXONE 1 GM in D5W 100 ML IV SCH (23:18)
[2016-07-21] MEDS: AZITHROMYCIN 500 MG in D5W 250 ML IV SCH ×2 (00:14→23:33)
[2016-07-21] MEDS: Albuterol/Ipratropium Neb 3 ML NEB NEB SCH ×4 (02:07→20:23)
[2016-07-21] MEDS: NS 1,000 ML IV SCH (03:30)
[2016-07-21] MEDS: METHYLPREDNISOLONE 125 MG/2 ML VIAL IV SCH ×3 (04:45→21:35)
[2016-07-21] MEDS: BENZONATATE 100 MG PERLES PO SCH ×3 (04:46→21:36)
[2016-07-21] MEDS: PROBIOTIC BLEND TAB PO SCH ×2 (07:59→17:31)
[2016-07-21] MEDS: LISINOPRIL 20 MG TAB PO SCH ×2 (07:59→21:36)
[2016-07-21] MEDS: HYDROCHLOROTHIAZIDE 12.5 MG CAP PO SCH ×2 (07:59→21:36)
[2016-07-21] MEDS: ATORVASTATIN 80 MG TAB PO SCH (08:00)
[2016-07-21] MEDS: Aspirin (Orange Enteric Coated) 325 mg tab PO SCH (08:00)
[2016-07-21] MEDS: METOPROLOL TARTRATE 100 MG TAB PO SCH ×2 (08:00→21:36)
[2016-07-21] MEDS: FENOFIBRATE 145 MG TAB PO SCH (08:00)
[2016-07-21] MEDS: BUDESONIDE 0.5 MG NEB NEB SCH ×3 (08:50→20:26)
[2016-07-21] MEDS: TUSSIONEX 5 ML ORAL SYRINGE PO SCH ×2 (09:48→21:38)
--- NOTE | 2016-07-21 16:07 | GENMEDPROG ---
Chief Complaint: Discussed smoking cessation again today and patient thinks by using nicotine patch will be able to quit. He mentions cough productive of greenish phlegm and he is feel better, less short of breath. Notes Reviewed: Yes: Events from last night noted and discussed with Clinical Staff Current Medication List: Reviewed Currently: Reports: Cough, Wheezing, CAMERON, SOB, Sputum DVT Prophylaxis: Yes - Physical Examination Vital Signs and I&O: Last Vital Signs Temp 97.7 F 07/21/16 11:38 Pulse 65 07/21/16 12:56 Resp 18 07/21/16 11:38 BP 112/62 07/21/16 11:38 Pulse Ox 96 07/21/16 11:38 Oxygen Pulse Oxygen Saturation 96 O2 Device Nasal Cannula Oxygen Flow Rate 1.5 Fraction of Inspired Oxygen ( 35 FIO2) Intake & Output 07/18/16 07/19/16 07/20/16 07/21/16 23:59 23:59 23:59 23:59 Intake Total 305 4904 3635 2125 Output Total 3375 2525 1750 Balance 305 1529 1110 375 Patient's weight 84.187 kg 85.366 kg 89.403 kg General: Oriented x3, Moderate distress, Obese, Weakness, Fatigue HEENT: Normal (Normocephalic, atraumatic;EOMI.Sclera white, Nares patent, without discharge or bleeding. No oropharyngeal lesions or erythema. Mucous membranes are dry.) Neck: Non-tender, Normal Trachea alignment, Normal inspection (No cervical lymphadenopathy. No supraclavicular lymphadenopathy.), No Masses palpable, Limited range of motion, Supple Lymphatics: Normal Respiratory: Diminished, Rhonchi, Wheezes, Excursion (decreased). negative: Rales Cardiovascular: Regular rate and rhythm (No bradycardia or tachycardia), Normal S1, No Gallops,Rubs/Murmurs, Normal S2, Good Pedal Pulses (DP pulses 2+ bilaterally) GI: Normal bowel sounds (normal active sounds), Soft (non-distended), Non tender , No hepatospenomegaly, No masses, Obese Extremities/Musculoskeletal: Normal pulses (DP pulses 2+ bilaterally), Other ( RA ulnar deviation) Skin: Warm,Dry and Intact, No rashes, No significant lesion Neurological: Strength at 5/5 X4 ext (Motor 5/5 throughout.), Normal tone, Cranial nerves 3-12 NL ( 2-12 grossly intact.) Psych/Mental Status: Appropriate, Normal Affect Lab/DI/Studies Reviewed: 07/19/16 01:45 07/19/16 01:45 - Assessment (1) Acute respiratory failure with hypoxia Acute J96.01 - ACUTE RESPIRATORY FAILURE WITH HYPOXIA Comment/Plan: O2 sat has improve such that now requiring 1.5 L by nasal cannula. (2) Bronchopneumonia Acute J18.0 - BRONCHOPNEUMONIA, UNSPECIFIED ORGANISM Comment/Plan: Tolerating the IV ceftriaxone and IV azithromycin with probiotic. (3) COPD with exacerbation Acute J44.1 - CHRONIC OBSTRUCTIVE PULMONARY DISEASE W (ACUTE) EXACERBATION Comment/Plan: COPD exacerbation, severe. Nebs of Duoneb q 6 hours scheduled and albuterol q 2 hours prn. IV ceftriaxone and IV azithromycin. IV methylprednisolone. Continuous oxygen support. Keep sats below 95% due to COPD. (4) Tobacco abuse Chronic Z72.0 - TOBACCO USE Comment/Plan: Reinforced cessation and agreed to take the Chantix to help him quit. (5) Hypothyroidism Chronic E03.9 - HYPOTHYROIDISM, UNSPECIFIED Qualifiers: Hypothyroidism type: acquired Qualified Code(s): E03.9 - Hypothyroidism, unspecified Comment/Plan: Synthroid. (6) DMII (diabetes mellitus, type 2) Chronic E11.9 - TYPE 2 DIABETES MELLITUS WITHOUT COMPLICATIONS Qualifiers: Diabetes mellitus complication status: with kidney complications Diabetes mellitus complication detail: with microalbuminuria Diabetes mellitus manager intermediate insulin use: without prison use Qualified Code(s): E11.29 - Type 2 diabetes mellitus with other diabetic kidney complication; R80.9 - Proteinuria, unspecified Comment/Plan: FSBS and SSI. Continue home meds. Case Care Discussed with: Patient, Nursing Staff, Resource Management Education/Counseling Given To: Patient Education/Counseling Given Regarding: Diagnosis, Treatment Total Time: 38 min Critical Care: No Code: 31232 (12+)
[2016-07-21] MEDS: ENOXAPARIN 40 MG/0.4 ML PFS SQ SCH (17:31)
[2016-07-21] MEDS: CEFTRIAXONE 1 GM in D5W 100 ML IV SCH (23:33)
[2016-07-22] MEDS: Albuterol/Ipratropium Neb 3 ML NEB NEB SCH ×2 (02:20→08:43)
[2016-07-22 03:54] LABS: AUTOMATED BASOPHIL 0.3 % (0-2); AUTOMATED LYMPH 6.3 % (17-44); AUTOMATED MONOCYTE 8.9 % (3-10); AUTOMATED NEUTROPHIL 84.5 % (45-76)
[2016-07-22 04:11] LABS: BLOOD UREA NITROGEN 19 MG/DL (9-20); CALCIUM 8.7 MG/DL (8.4-10.2); CALCULATED OSMOLALITY 272 MOs/Kg (270-290); CHLORIDE 96 mEq/L (98-107); GLUCOSE 131 mg/dL (70-99); SODIUM LEVEL 139 mEq/L (137-146)
[2016-07-22 04:21] VITALS: BMI 36.0
[2016-07-22] MEDS: BENZONATATE 100 MG PERLES PO SCH (05:21)
[2016-07-22] MEDS: METHYLPREDNISOLONE 125 MG/2 ML VIAL IV SCH ×2 (05:22→11:57)
[2016-07-22] MEDS: METOPROLOL TARTRATE 100 MG TAB PO SCH (08:23)
[2016-07-22] MEDS: LISINOPRIL 20 MG TAB PO SCH (08:28)
[2016-07-22] MEDS: FENOFIBRATE 145 MG TAB PO SCH (08:28)
[2016-07-22] MEDS: TUSSIONEX 5 ML ORAL SYRINGE PO SCH (08:28)
[2016-07-22] MEDS: PROBIOTIC BLEND TAB PO SCH (08:28)
[2016-07-22] MEDS: ATORVASTATIN 80 MG TAB PO SCH (08:28)
[2016-07-22] MEDS: Aspirin (Orange Enteric Coated) 325 mg tab PO SCH (08:28)
[2016-07-22] MEDS: HYDROCHLOROTHIAZIDE 12.5 MG CAP PO SCH (08:28)
[2016-07-22 08:31] VITALS: TEMP 97.6
[2016-07-22] MEDS: BUDESONIDE 0.5 MG NEB NEB SCH (08:48)
--- NOTE | 2016-07-22 10:38 | PCM.DCS92 ---
- Final/Secondary Discharge Diagnosis (1) Acute respiratory failure with hypoxia Acute J96.01 - ACUTE RESPIRATORY FAILURE WITH HYPOXIA Present on Admission: Yes Comment: O2 sat has improve such that now requiring 3 L by nasal cannula. (2) Bronchopneumonia Acute J18.0 - BRONCHOPNEUMONIA, UNSPECIFIED ORGANISM Present on Admission: Yes Comment: Tolerating the IV ceftriaxone and IV azithromycin with probiotic. (3) COPD with exacerbation Acute J44.1 - CHRONIC OBSTRUCTIVE PULMONARY DISEASE W (ACUTE) EXACERBATION Present on Admission: Yes Comment: COPD exacerbation, severe. Nebs of Duoneb q 6 hours scheduled and albuterol q 2 hours prn. IV ceftriaxone and IV azithromycin. IV methylprednisolone. Continuous oxygen support. Keep sats below 95% due to COPD. (4) Tobacco abuse Chronic Z72.0 - TOBACCO USE Present on Admission: Yes Comment: Reinforced cessation and agreed to take the Chantix to help him quit. (5) Hypothyroidism Chronic E03.9 - HYPOTHYROIDISM, UNSPECIFIED acquired E03.9 - Hypothyroidism, unspecified Comment: Synthroid. (6) DMII (diabetes mellitus, type 2) Chronic E11.9 - TYPE 2 DIABETES MELLITUS WITHOUT COMPLICATIONS Present on Admission: Yes with kidney complications with microalbuminuria without residential use E11.29 - Type 2 diabetes mellitus with other diabetic kidney complication; R80.9 - Proteinuria, unspecified Comment: FSBS and SSI. Continue home meds. Discharge Disposition: Home Discharge Condition: Improved Cognitive Discharge Status: Unimpaired Fuctional Discharge Status: Independent Physician Follow up/Referrals: Reji Dinero MD [Primary Care Provider] - Hospital to call w/ appt. Home Medications / New Prescriptions: New Azithromycin [Zithromax] 500 mg PO DAILY #6 tablet Benzonatate [Tessalon] 200 mg PO TID #30 capsule Cefdinir [Omnicef] 300 mg PO BID #10 cap Probiotic Blend [Cady Q] 1 tab PO BIDLS #30 tablet Varenicline [Chantix] 0.5 mg PO BIDWM #60 tablet Continue Metoprolol Tartrate [Lopressor] 100 mg PO BID Lisinopril/Hydrochlorothiazide [Lisinopril-Hctz 20-12.5 mg Tab] 1 tab PO BID Fenofibrate,Micronized [Fenofibrate] 200 mg PO DAILY Aspirin (OrangeEnteric Coated) [Ecotrin] 325 mg PO DAILY Albuterol/Ipratropium Neb [Duoneb] 3 ml NEB Q4-6H PRN PRN Reason: Shortness Of Breath Nebulizer [Erapid Nebulizer] 1 item INH DAILY Atorvastatin Calcium [Lipitor] 80 mg PO DAILY Budesonide [Pulmicort] 0.5 mg NEB TID Discharge Home Medication List Albuterol/Ipratropium Neb [Duoneb] 3 ml NEB Q4-6H PRN 02/23/14 [History Confirmed 07/18/16 Last Taken 07/18/16] Aspirin (OrangeEnteric Coated) [Ecotrin] 325 mg PO DAILY 02/23/14 [History Confirmed 07/18/16 Last Taken 07/18/16] Fenofibrate,Micronized [Fenofibrate] 200 mg PO DAILY 02/23/14 [History Confirmed 07/18/16 Last Taken 07/18/16] Lisinopril/Hydrochlorothiazide [Lisinopril-Hctz 20-12.5 mg Tab] 1 tab PO BID 01/29 [History Confirmed 07/18/16 Last Taken 07/18/16] Metoprolol Tartrate [Lopressor] 100 mg PO BID 02/23/14 [History Confirmed Last Taken 07/18/16] Atorvastatin Calcium [Lipitor] 80 mg PO DAILY 08/23/14 [History Confirmed Last Taken 07/18/16] Nebulizer [Erapid Nebulizer] 1 item INH DAILY 08/23/14 [History Confirmed Last Taken 07/18/16] Budesonide [Pulmicort] 0.5 mg NEB TID 07/18/16 [History Confirmed 07/18/16 Last Taken 07/18/16] Azithromycin [Zithromax] 500 mg PO DAILY #6 tablet 07/22/16 [Rx Last Taken Unknown] Benzonatate [Tessalon] 200 mg PO TID #30 capsule 07/22/16 [Rx Last Taken Unknown ] Cefdinir [Omnicef] 300 mg PO BID #10 cap 07/22/16 [Rx Last Taken Unknown] Probiotic Blend [Cady Q] 1 tab PO BIDLS #30 tablet 07/22/16 [Rx Last Taken Unknown] Varenicline [Chantix] 0.5 mg PO BIDWM #60 tablet 02/04/17 [Rx Last Taken Unknown ] 07/22/16 03:40 07/22/16 03:40 Laboratory Results - last 24 hr 07/22/16 07/22/16 03:40 03:40 WBC 17.1 H RBC 4.44 L Hgb 13.9 L Hct 42.8 MCV 96 H MCH 31.3 MCHC 32.5 L RDW 16.7 H Plt Count 231 MPV 10.0 Neut % (Auto) 84.5 H Lymph % (Auto) 6.3 L Lamb % (Auto) 8.9 Eos % (Auto) 0.0 Baso % (Auto) 0.3 Absolute Neuts (auto) 14.36 H Absolute Lymphs (auto) 1.03 Sodium 139 Potassium 4.7 Chloride 96 L Carbon Dioxide 37 H Anion Gap 11 BUN 19 Creatinine 0.80 Estimated GFR (MDRD) > 60 Glucose 131 H Calculated Osmolality 272 Calcium 8.7 O2 Device: Nasal Cannula Oxygen to be used after Discharge: Continuous Diet at Discharge: Heart Healthy Activity: As Tolerated Discontinue use of:: All Types of Tobacco - DC Summary Notes HPI/Notes: The patient is a 61 yo man with COPD who does not wear oxygen at home who presents with acute shortness of breath. It started this morning and has been getting worse, so he presented to the emergency department. He has had fever and chills today. Onset: this morning. Duration: Now constant. Character: Can't get a good breath. Even short of breath with sitting. Alleviated by: Nothing. Exacerbated by: Walking. Associated Symptoms: Fever, chills, and diaphoresis. Cough productive of white sputum. Wheezing. No chest pain or palpitations. Treatments: none at home except usual medications. Hospital Course Note:: Discharge summary on patient named HALIMA ROSALES admitted to [facility] on 07/18/16 by Scott Rosen MD. Date of discharge is 07/22/2016. Patient was admitted with acute respiratory failure evidence of sepsis which has since resolved COPD exacerbation and bilateral pneumonia. He was started on Rocephin Zithromax and tolerated this well over the ensuing days. The CT of the chest showed tracheobronchomalacia and significant COPD. There was no evidence of any pulmonary embolus. He had to be maintained on supplemental O2 during hospitalization and actually did drop his saturation to 88% on day of discharge requiring the supplemental O2. We also discussed smoking cessation several times during hospitalization and he agreed to try Chantix again to help him quit. He tolerated the initial doses in the hospital well. He is advised follow up with his primary care provider Dr. Dinero within the next 2 weeks. cc: Dr. Dinero Total Time: 38 min Code: 58109 (>30min.) - Physical Exam Vital Signs: Last Vital Signs Temp 97.6 F 07/22/16 08:00 Pulse 57 L 07/22/16 08:00 Resp 18 07/22/16 08:00 BP 122/75 07/22/16 08:00 Pulse Ox 95 07/22/16 08:43 Oxygen Pulse Oxygen Saturation 95 O2 Device Nasal Cannula Oxygen Flow Rate 3 Fraction of Inspired Oxygen ( 35 FIO2) Constitutional: Alert, Distress Oriented to: Time, Person, Place - HEENT Head: Normal Eye: Normal Oropharynx: Normal (Pharynx: Moist without exudate,Gums-no swelling, No oropharyngeal lesions or erythema, Mucous membranes are dry.) ENT EAC: Normal (No oropharyngeal lesions or erythema. Mucous membranes are dry. ) TMJ: Normal Nose: No Symptoms Reported - Respiratory/Cardiovascular Respiratory: Diminished. negative: Rales, Rhonchi, Wheezes Cardiovascular: Normal (RRR , Normal S1, S2. No murmurs, rubs, or gallops. PMI non-displaced. Carotids: no carotid bruits. No bradycardia or tachycardia. DP pulses 2+ bilaterally.) - GI Auscultation: Normal (normal active sounds) Palpation: Normal Tenderness: Non tender Lutz's Sign: Negative - Musculoskeletal Back: Normal Extremities: Normal - Integumentary Skin: Normal (Warm dry no rashes) Lymphatics: Normal - Neurologic Memory Impaired: Normal Motor Function: Normal (Motor 5/5 throughout.Normal tone, Pulses 2+ No cyanosis or edema, FROM) Cranial Nerve: Normal (CN II-XII intact sensation, strength 5/5) Cerebellar: Normal Mood Description: Normal Thought: Coherent Perception: Normal
[2016-07-22 10:54] VITALS: BP 137/73; PULSE 64
== END 2016-07-22 13:05 | disposition home or self-care (01) | DRG 871 ==
LOC: ED 19:28 → PCU 23:14
PROVIDERS: ADMIT Internal Medicine; ATTEND Internal Medicine
PROC: 4A033R1 Measurement of Arterial Saturation, Peripheral, Percutaneous Approach (ICD-10-PCS; principal; 2016-07-18)
DX: A41.9 Sepsis, unspecified organism (principal); J18.0 Bronchopneumonia, unspecified organism; J96.01 Acute respiratory failure with hypoxia; J44.1 Chronic obstructive pulmonary disease with (acute) exacerbation; R65.20 Severe sepsis without septic shock; E03.9 Hypothyroidism, unspecified; E11.29 Type 2 diabetes mellitus with other diabetic kidney complication; R80.9 Proteinuria, unspecified; I10 Essential (primary) hypertension; E78.00 Pure hypercholesterolemia, unspecified; K21.9 Gastro-esophageal reflux disease without esophagitis; M06.9 Rheumatoid arthritis, unspecified; Z72.0 Tobacco use; Z90.81 Acquired absence of spleen; Z79.82 Long term (current) use of aspirin
CPT/HCPCS: 36415; 36600; 71010; 71275; 80048; 80053; 82803; 83605; 83880; 84484; 85007; 85025; 85027; 85379; 85610; 85730; 87040; 87070; 87086; 87205; 93005; 94640; 94664; 96365; 96366; 96372; 96375; 98960; 99284; 99406; A9698; G0237; J0456; J0696; J1650; J2930; J3490; J7060; J7070; J7620